=== PATIENT | male | born 1960 | race Two or more races ===

== ENCOUNTER 2022-05-10 14:42 | Emergency (ER) | payer MEDICAID ==
[~2022-05-10] VITALS: Ht 172.7 cm; Wt 73.0 kg
[2022-05-10 18:30] VITALS: BP 129/73
[2022-05-10] MEDS ORDERED: ACETAMINOPHEN 325MG TABLET PO ONE (18:30)
[2022-05-10] MEDS ORDERED: IBUPROFEN 600MG TABLET PO ONE (18:30)
[2022-05-10] MEDS ORDERED: IBUP-2029 MT (19:42)
[2022-05-10] MEDS ORDERED: CYCL10TA21 MT (19:42)
== END 2022-05-10 20:02 | disposition home or self-care (01) ==
LOC: ER 14:42
DX: M54.50 Low back pain, unspecified (principal); M54.2 Cervicalgia; I10 Essential (primary) hypertension; V49.9XXA Car occupant (driver) (passenger) injured in unspecified traffic accident, initial encounter; Y93.89 Activity, other specified; Y92.89 Other specified places as the place of occurrence of the external cause; Y99.8 Other external cause status
CPT/HCPCS: 72100; 99283